=== PATIENT | female | born 1980 | race Caucasian/White ===

== ENCOUNTER 2016-10-03 07:28 | Inpatient (IN) | payer BC ==
[~2016-10-03] VITALS: Ht 167.6 cm; Wt 102.0 kg
[2016-10-03 08:16] VITALS: BP 107/61
[2016-10-03 13:52] VITALS: BP 119/67
[2016-10-03 15:54] LABS: MCHC 32.4 G/DL (30.0-36.0); MCV 83.1 FL (83-99); MEAN PLAT.VOLUME 10.1 uM^3 (9.5-12.4); PLATELET COUNT 317 K/uL (156-360); RBC DIS.WIDTH-CV 14.4 % (11.8-14.6); RBC DIS.WIDTH-SD 43.5 % (39-53); RED BLOOD COUNT 4.45 M/uL (3.80-5.20); WHITE BLOOD COUNT 16.7 K/uL (4.1-10.2)
[2016-10-03 16:18] LABS: ANION GAP 8 MEQ/L (2-14); CHLORIDE 106 MEQ/L (99-109); GFR ESTIMATE (CALCULATED) > 59 mL/min/; GLUCOSE 123 mg/dL (70-99); POTASSIUM 4.3 MEQ/L (3.7-5.4); SAMPLE HEMOLYSIS CHECK 0; SAMPLE ICTERIC CHECK 0; SAMPLE LIPEMIA CHECK 0; SODIUM 138 MEQ/L (136-147); UREA NITROGEN (BUN) 7 mg/dL (9-23)
[2016-10-03 16:37] VITALS: BP 133/65
[2016-10-03 20:18] VITALS: BP 122/68
[2016-10-03 23:31] VITALS: BP 118/66
[2016-10-04 04:09] VITALS: BP 117/69
[2016-10-04 07:36] VITALS: BP 132/73
[2016-10-04 07:42] LABS: HEMATOCRIT 35.5 % (36.0-46.0); MCH 27.1 PG (29.0-34.0); MCHC 32.1 G/DL (30.0-36.0); MCV 84.3 FL (83-99); MEAN PLAT.VOLUME 10.3 uM^3 (9.5-12.4); PLATELET COUNT 331 K/uL (156-360); RBC DIS.WIDTH-CV 14.6 % (11.8-14.6); RBC DIS.WIDTH-SD 44.8 % (39-53); RED BLOOD COUNT 4.21 M/uL (3.80-5.20); WHITE BLOOD COUNT 13.8 K/uL (4.1-10.2)
[2016-10-04 08:09] LABS: ANION GAP 7 MEQ/L (2-14); CHLORIDE 104 MEQ/L (99-109); GFR ESTIMATE (CALCULATED) > 59 mL/min/; GLUCOSE 120 mg/dL (70-99); POTASSIUM 4.5 MEQ/L (3.7-5.4); SAMPLE HEMOLYSIS CHECK 0; SAMPLE ICTERIC CHECK 0; SAMPLE LIPEMIA CHECK 0; SODIUM 140 MEQ/L (136-147); UREA NITROGEN (BUN) 6 mg/dL (9-23)
[2016-10-04] MEDS ORDERED: ZOFRAN ODT8 MG PO (10:03)
[2016-10-04] MEDS ORDERED: TRAMADOL HCL50 MG PO (10:03)
[2016-10-04 11:47] VITALS: BP 106/55
[2016-10-04 16:06] VITALS: BP 93/51
[2016-10-05] VITALS: BP 111/58
[2016-10-05 06:42] LABS: HEMATOCRIT 34.7 % (36.0-46.0); MCH 26.5 PG (29.0-34.0); MCHC 31.4 G/DL (30.0-36.0); MCV 84.2 FL (83-99); MEAN PLAT.VOLUME 10.1 uM^3 (9.5-12.4); PLATELET COUNT 292 K/uL (156-360); RBC DIS.WIDTH-CV 14.8 % (11.8-14.6); RBC DIS.WIDTH-SD 45.6 % (39-53); RED BLOOD COUNT 4.12 M/uL (3.80-5.20); WHITE BLOOD COUNT 11.2 K/uL (4.1-10.2)
[2016-10-05 07:21] LABS: ANION GAP 8 MEQ/L (2-14); CHLORIDE 105 MEQ/L (99-109); GFR ESTIMATE (CALCULATED) > 59 mL/min/; POTASSIUM 4.2 MEQ/L (3.7-5.4); SAMPLE HEMOLYSIS CHECK 0; SAMPLE ICTERIC CHECK 0; SAMPLE LIPEMIA CHECK 0; SODIUM 142 MEQ/L (136-147); UREA NITROGEN (BUN) 9 mg/dL (9-23)
[2016-10-05 07:24] LABS: GLUCOSE 86 mg/dL (70-99)
[2016-10-05 08:10] VITALS: BP 116/72
== END 2016-10-05 10:15 | disposition home or self-care (01) | DRG 743 ==
LOC: 2SOUTH 07:28 → SDC 12:42 → EDSTATUS 12:42 → 2SOUTH 12:43 → 2EAST 13:32
PROVIDERS: Obstetrics & Gynecology Gynecologic Oncology
DX: N84.3 Polyp of vulva (principal); N83.201 Unspecified ovarian cyst, right side; Z88.0 Allergy status to penicillin; Z91.041 Radiographic dye allergy status; Z80.41 Family history of malignant neoplasm of ovary; E66.9 Obesity, unspecified; Z68.36 Body mass index [BMI] 36.0-36.9, adult
CPT/HCPCS: 36415; 80048; 85027; 86850; 86900; 86901; 86920; 88302; 88304; 88305; J0131; J1100; J1170; J1580; J1650; J1885; J2250; J2270; J2405; J2765; J3010; J7050; S0030

== ENCOUNTER 2017-10-22 14:16 | Emergency (ER) | payer BC ==
[~2017-10-22] VITALS: Ht 167.6 cm; Wt 107.0 kg
[~2017-10-22 14:16] MED LIST: TRAMADOL HCL50 MG PO; ZOFRAN ODT8 MG PO
[2017-10-22] MEDS ORDERED: EPIPEN ADU0.3 MG/0.3 IM (15:00)
[2017-10-22] MEDS ORDERED: DELTASONE20 M1 PO (15:00)
[2017-10-22 15:31] VITALS: BP 00/0
== END 2017-10-22 15:33 | disposition home or self-care (01) ==
LOC: EME 14:16
DX: T78.40XA Allergy, unspecified, initial encounter (principal); Z91.013 Allergy to seafood; Z91.010 Allergy to peanuts; Z88.0 Allergy status to penicillin; J45.909 Unspecified asthma, uncomplicated; K21.9 Gastro-esophageal reflux disease without esophagitis
CPT/HCPCS: 99281; 99283; J7512